=== PATIENT | male | born 1965 | race Caucasian/White ===

== ENCOUNTER 2017-07-07 17:20 | Emergency (ER) | payer MEDICAID ==
[~2017-07-07] VITALS: Ht 165.1 cm; Wt 103.0 kg
[~2017-07-07 17:20] MED LIST: IBUP-40; [UNRECOGNIZED DRUG - REMARK]
[2017-07-07 17:22] VITALS: Ht 165.1 cm; Wt 103.0 kg
[2017-07-07] MEDS ORDERED: KETOROLAC 15 MG INJ IM STA (18:25)
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
[2017-07-07] MEDS ORDERED: DIAZEPAM 5 MG TAB PO ONE (18:30)
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
[2017-07-07] MEDS ORDERED: NAPR-260 PO (22:58)
[2017-07-07] MEDS ORDERED: DIAZ-90 PO (22:59)
[2017-07-07] MEDS ORDERED: FAMO-96 PO (22:59)
== END 2017-07-07 22:45 | disposition home or self-care (01) ==
LOC: FTE 17:20
DX: S40.022A Contusion of left upper arm, initial encounter (principal); I10 Essential (primary) hypertension; V49.40XA Driver injured in collision with unspecified motor vehicles in traffic accident, initial encounter
CPT/HCPCS: 73090; 73110; 73562; 96372; J1885; Z7502; Z7610; 93005